=== PATIENT | male | born 1975 | race Caucasian/White ===

== ENCOUNTER 2016-06-15 23:29 | Emergency (ER) | payer SELFPAY ==
[2016-06-16] MEDS ORDERED: MORPHINE SULFATE 10 MG/ML SYRINGE IM STA (00:15)
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
--- NOTE | 2016-06-16 01:00 | US ---
EXAM: US Scrotum. CLINICAL HISTORY: Reason: Pain TECHNIQUE: Real-time ultrasound of the scrotum with color Doppler and image documentation. COMPARISON: 03/02/16 ultrasound. FINDINGS: Right testicle: Unremarkable. No mass. No torsion. The right testis measures 3.7 x 2.6 x 2.3 cm Left testicle: Unremarkable. No mass. No torsion. The left testis measures 4.0 x 2.7 x 1.8 cm Epididymides: Again seen is a simple appearing left epididymal head cyst versus spermatocele measuring 8 x 7 x 6 mm. The right epididymis is unremarkable. Scrotum: Small left greater than right hydrocele again present. There is again suggestion of some fluid present or tracking superiorly, towards the left inguinal canal level as on the prior exam. No varicocele seen. IMPRESSION: No new abnormality is detected, as above.
[2016-06-16] MEDS ORDERED: KETOROLAC 60 MG/2 ML VIAL IM STA (01:09)
[2016-06-16 01:30] VITALS: BP 126/80; PULSE 85; RESP 18; TEMP 98
== END 2016-06-16 01:30 | disposition home or self-care (01) ==
LOC: EC 23:29
DX: S30.22XA Contusion of scrotum and testes, initial encounter (principal); N43.3 Hydrocele, unspecified; F17.200 Nicotine dependence, unspecified, uncomplicated; W50.0XXA Accidental hit or strike by another person, initial encounter
CPT/HCPCS: 93975; 76870; 99284; 96372; J1885

== ENCOUNTER 2016-09-12 15:28 | Emergency (ER) | payer OTHER ==
[2016-09-12 15:34] VITALS: BP 131/81; PULSE 118; RESP 20; TEMP 96.9
[2016-09-12] MEDS ORDERED: DIPH,PERTUS(ACELL)TETVAC-LF 0.5 ML VIAL IM ONE (15:54)
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
[2016-09-12] MEDS ORDERED: HYDROcodone/APAP 5-325MG 1 EACH TAB PO STA (16:23)
== END 2016-09-12 16:29 | disposition home or self-care (01) ==
LOC: EC 15:28
DX: T20.17XA Burn of first degree of neck, initial encounter (principal); T22.112A Burn of first degree of left forearm, initial encounter; T23.162A Burn of first degree of back of left hand, initial encounter; T31.0 Burns involving less than 10% of body surface; F17.200 Nicotine dependence, unspecified, uncomplicated; Z23 Encounter for immunization; X12.XXXA Contact with other hot fluids, initial encounter; Y93.89 Activity, other specified
CPT/HCPCS: 16000; 90471; 90715; 99283

== ENCOUNTER 2016-12-24 17:22 | Emergency (ER) | payer OTHER ==
[2016-12-24 17:33] VITALS: BP 136/96; PULSE 100; RESP 18; TEMP 98.5
--- NOTE | 2016-12-24 19:01 | ED ---
ENT HPI - General Chief complaint: Dental/Oral Stated complaint: tooth pain Time Seen by Provider: 12/24/16 18:37 Source: patient Mode of arrival: ambulatory Limitations: no limitations - History of Present Illness Initial comments: 41-year-old male patient presents to emergency department today for complaints of left dental pain. Patient states that he did have his teeth removed completely 2 years ago. Patient states that 3 days ago he began having some left-sided jaw pain. Patient states that it became more severe, when he inspected the area he did see a tooth erupting from the left posterior gum region. The patient states that he did go back to the office where he had the teeth removed, they told him that it appeared to be an impacted wisdom tooth coming out, and because he didn't have insurance and was nothing they could do to help him. Patient states that the pain has become unbearable. He is concerned for infection. Patient states that he is unable to wear his dentures due to the pain. He denies any difficulty swallowing. Patient denies any recent fever, chills, shortness breath, chest pain, abdominal pain, nausea, vomiting, diarrhea, constipation, back pain, numbness, tingling, headache, visual changes, hematuria, dysuria, urinary frequency, urinary urgency, or any other complaints. - Related Data Previous Rx's Medication Instructions Recorded Acetaminophen-Codeine 300-30mg 1 tab PO Q6H PRN #15 tablet 12/24/16 [Tylenol #3] Penicillin V Potassium [Pen Vee K] 500 mg PO QID #40 tab 12/24/16 Allergies Allergy/AdvReac Type Severity Reaction Status Date / Time No Known Allergies Allergy Verified 12/24/16 17:33 Review of Systems ROS Statement: Those systems with pertinent positive or pertinent negative responses have been documented in the HPI. ROS Other: All systems not noted in ROS Statement are negative. Past Medical History Past Medical History: No Reported History Additional Past Medical History / Comment(s): dislocated shoulder, HYDROCELE History of Any Multi-Drug Resistant Organisms: None Reported Past Surgical History: No Surgical Hx Reported Past Psychological History: No Psychological Hx Reported Smoking Status: Current every day smoker Past Alcohol Use History: None Reported Past Drug Use History: None Reported General Exam Limitations: no limitations General appearance: alert, in no apparent distress Head exam: Present: atraumatic, normocephalic, normal inspection Eye exam: Present: normal appearance, PERRL, EOMI. Absent: scleral icterus, conjunctival injection, periorbital swelling ENT exam: Present: normal exam, normal oropharynx, mucous membranes moist, TM's normal bilaterally, other (Left posterior, exhibits a tooth eruption, some gingival erythema present. No area of drainable abscess. Patient is able to open his mouth without difficulty.) Neck exam: Present: normal inspection, full ROM. Absent: tenderness, meningismus, lymphadenopathy Respiratory exam: Present: normal lung sounds bilaterally. Absent: respiratory distress, wheezes, rales, rhonchi, stridor Cardiovascular Exam: Present: regular rate, normal rhythm, normal heart sounds. Absent: systolic murmur, diastolic murmur, rubs, gallop, clicks Neurological exam: Present: alert, oriented X3, CN II-XII intact Psychiatric exam: Present: normal affect, normal mood Skin exam: Present: warm, dry, intact, normal color. Absent: rash Course Vital Signs 12/24/16 17:31 Temperature 98.5 F Pulse Rate 100 Respiratory 18 Rate Blood Pressure 136/96 O2 Sat by Pulse 100 Oximetry Medical Decision Making - Medical Decision Making 41-year-old male patient is asked to emergency department today for evaluation of left-sided dental pain. Patient does appear to have an erupting tooth to the left posterior gumline. All other teeth have been removed. There was some surrounding erythema so patient will be placed on penicillin, however there is no area of drainable abscess. Patient also be given pain medications and recommended to the dental school in [place] for further evaluation as he does not have any insurance. Patient was instructed to follow up with his primary care physician for recheck in 1-2 days. Instructed to return here immediately for any new, worsening, or concerning symptoms. Patient verbalizes understanding and agreement with this plan. Disposition Clinical Impression: Pain, dental Disposition: HOME SELF-CARE Condition: Good Instructions: Toothache (ED) Additional Instructions: Call [facility] at [phone] to schedule a screening appointment. Swish with ice water to decrease inflammation. Take over-the- counter Tylenol or ibuprofen for pain control. Take prescription pain medication for severe pain. Complete antibiotic prescription in full. Return immediately for any new, worsening, or concerning symptoms. Prescriptions: Acetaminophen-Codeine 300-30mg [Tylenol #3] 1 tab PO Q6H PRN #15 tablet PRN Reason: Pain Penicillin V Potassium [Pen Vee K] 500 mg PO QID #40 tab Referrals: None,Stated [Primary Care Provider] - 1-2 days Time of Disposition: 19:01
== END 2016-12-24 19:11 | disposition home or self-care (01) ==
LOC: EC 17:22
DX: K00.6 Disturbances in tooth eruption (principal); K01.1 Impacted teeth; F17.200 Nicotine dependence, unspecified, uncomplicated
CPT/HCPCS: 99282